=== PATIENT | female | born 1945 | race Caucasian/White ===

== ENCOUNTER → 2020-10-05 14:40 | Outpatient (CLI) | payer MEDICARE, SELFPAY ==
[2020-10-05 14:17] VITALS: BMI 52.7
[2020-10-05 15:44] LABS: ALB/GLOB Ratio 1.2 RATIO (0.9-2.4); AST(SGOT) 14 U/L (15-37); Alanine Aminotransfer ALT/SGPT 26 U/L (13-56); Albumin, Serum 4.1 g/dL (3.2-5.0); Alkaline Phosphatase 101 U/L (45-117); Anion Gap 8 (5-15); BUN 17 mg/dL (7-18); BUN/Creat Ratio 24.7 RATIO (10-20); Calcium,Total 9.5 mg/dL (8.5-10.1); Chloride 103 mmol/L (98-107); Cholesterol 192 mg/dL (200); Creatinine, Serum 0.69 mg/dL (0.55-1.02); EST Glomerular Filtration Rate 89 mL/min (>60); Est Glom Filt Rate - Afr Amer 107 mL/min (>60); Globulin 3.4 g/dL (2.2-4.2); Glucose 103 mg/dL (74-106); High Density Lipoprotein 71 mg/dL; Potassium 4.9 mmol/L (3.5-5.1); Protein, Total 7.5 g/dL (6.4-8.2); Sodium Level 140 mmol/L (136-145); Triglycerides 171 mg/dL; Very Low Density Lipoprotein 34 mg/dL (5-40)
== END ==
PROVIDERS: PCP Family Medicine; Referring Provider Family Medicine; Visit Provider Family Medicine
DX: I10 Essential (primary) hypertension (principal); E78.5 Hyperlipidemia, unspecified
CPT/HCPCS: 36415; 80053; 80061

== ENCOUNTER 2021-09-14 15:58 | Outpatient (CLI) | payer MEDICARE, SELFPAY ==
[2021-09-14 16:49] LABS: AST(SGOT) 16 U/L (15-37); Alanine Aminotransfer ALT/SGPT 28 U/L (13-56); Albumin, Serum 3.9 g/dL (3.2-5.0); Alkaline Phosphatase 95 U/L (45-117); Anion Gap 5 (5-15); BUN 10 mg/dL (7-18); BUN/Creat Ratio 13.9 RATIO (10-20); Calcium,Total 9.2 mg/dL (8.5-10.1); Chloride 103 mmol/L (98-107); Cholesterol 176 mg/dL (200); Creatinine, Serum 0.72 mg/dL (0.55-1.02); EST Glomerular Filtration Rate 84 mL/min (>60); Est Glom Filt Rate - Afr Amer 102 mL/min (>60); Globulin 3.9 g/dL (2.2-4.2); Glucose 101 mg/dL (74-106); High Density Lipoprotein 67 mg/dL; Potassium 4.9 mmol/L (3.5-5.1); Protein, Total 7.8 g/dL (6.4-8.2); Sodium Level 138 mmol/L (136-145); Triglycerides 143 mg/dL; Very Low Density Lipoprotein 29 mg/dL (5-40)
== END 2021-09-14 23:59 | disposition home or self-care (01) ==
LOC: BIMLAB 15:59
PROVIDERS: PCP Family Medicine; Referring Provider Family Medicine; Visit Provider Family Medicine
DX: E78.5 Hyperlipidemia, unspecified (principal); I51.9 Heart disease, unspecified
CPT/HCPCS: 36415; 80053; 80061

== ENCOUNTER → 2022-06-05 | Outpatient (CLI) | payer MEDICARE, SELFPAY ==
[2022-06-05 17:53] LABS: Anion Gap 4 (5-15); BUN 17 mg/dL (7-18); BUN/Creat Ratio 20.6 RATIO (10-20); Calcium,Total 9.3 mg/dL (8.5-10.1); Chloride 108 mmol/L (98-107); Creatinine, Serum 0.83 mg/dL (0.55-1.02); EST Glomerular Filtration Rate 71 mL/min (>60); Est Glom Filt Rate - Afr Amer 86 mL/min (>60); Glucose 138 mg/dL (74-106); Potassium 4.2 mmol/L (3.5-5.1); Sodium Level 141 mmol/L (136-145)
== END | disposition home or self-care (01) ==
PROVIDERS: PCP Family Medicine; Referring Provider Urology; Visit Provider Urology
DX: N39.44 Nocturnal enuresis (principal)
CPT/HCPCS: 36415; 80048

== ENCOUNTER → 2022-07-18 | Outpatient (CLI) | payer MEDICARE, SELFPAY ==
[2022-07-18 18:22] LABS: Anion Gap 4 (5-15); BUN 15 mg/dL (7-18); BUN/Creat Ratio 23.4 RATIO (10-20); Calcium,Total 8.9 mg/dL (8.5-10.1); Chloride 109 mmol/L (98-107); Creatinine, Serum 0.64 mg/dL (0.55-1.02); EST Glomerular Filtration Rate 96 mL/min (>60); Est Glom Filt Rate - Afr Amer 116 mL/min (>60); Glucose 122 mg/dL (74-106); Potassium 4.1 mmol/L (3.5-5.1); Sodium Level 142 mmol/L (136-145)
== END | disposition home or self-care (01) ==
LOC: MTLAB 14:56
PROVIDERS: PCP Family Medicine; Referring Provider Urology; Visit Provider Urology
DX: N39.44 Nocturnal enuresis (principal)
CPT/HCPCS: 36415; 80048

== ENCOUNTER → 2022-12-06 | Outpatient (CLI) | payer OTHER, SELFPAY ==
[2022-12-06 17:17] LABS: Cholesterol 132 mg/dL (200); High Density Lipoprotein 64 mg/dL; Triglycerides 76 mg/dL; Very Low Density Lipoprotein 15 mg/dL (5-40)
== END | disposition home or self-care (01) ==
LOC: BIMLAB 15:36
PROVIDERS: PCP Family Medicine; Visit Provider Family Medicine
DX: G45.9 Transient cerebral ischemic attack, unspecified (principal)
CPT/HCPCS: 36415; 80061

== ENCOUNTER → 2022-12-19 | Outpatient (CLI) | payer OTHER, SELFPAY ==
[2022-12-19 15:35] LABS: Anion Gap 5 (5-15); BUN 13 mg/dL (7-18); BUN/Creat Ratio 19.7 RATIO (10-20); Calcium,Total 8.8 mg/dL (8.5-10.1); Chloride 104 mmol/L (98-107); Creatinine, Serum 0.66 mg/dL (0.55-1.02); EST Glomerular Filtration Rate 93 mL/min (>60); Est Glom Filt Rate - Afr Amer 112 mL/min (>60); Glucose 159 mg/dL (74-106); Potassium 4.3 mmol/L (3.5-5.1); Sodium Level 136 mmol/L (136-145)
== END | disposition home or self-care (01) ==
LOC: MTLAB 13:41
PROVIDERS: PCP Family Medicine; Referring Provider Urology; Visit Provider Urology
DX: N39.44 Nocturnal enuresis (principal)
CPT/HCPCS: 36415; 80048

== ENCOUNTER → 2023-08-21 | Outpatient (CLI) | payer OTHER, SELFPAY ==
--- OUTSIDE RECORDS SUMMARY | 2023-08-21 14:43 | XMS RPT_ITS | CCD ---
Author Name Unknown Address [address] [place] [address] Organization [facility] Care Team Providers Care Income Tax Manager Name Role Phone Lashell Neville Unavailable Unavailable Unavailable Primary Care Provider DARRION Diaz DO Primary Care Unavailable DARRION [place] DO Attending Unavailable BRITTANY WASHINGTON MD Attending Unavailable DARRION [place] DO Primary Care Unavailable DARRION [place] DO Attending Unavailable DARRION [place] DO Primary Care Unavailable Allergies Allergy Classification Reported Allergen(s) Allergy Type Date of Onset Reaction(s) Facility (2 sources) Indomethacin; Translations: [INDOMETHACIN] Drug Allergy 2020 Other: See Comments [facility] (2 sources) Morphine; Translations: [MORPHINE] Drug Allergy 2020 Itching [facility] Medications Current Medications Medication Drug Class(es) Dates Sig (Normalized) Sig (Original) benzonatate 100 mg oral capsule (1 source) Non-narcotic Antitussive Start: 07-07-2022 End: 07-14-2022 take 2 capsules by mouth three times daily as needed benzonatate (TESSALON PERLES) 100 mg capsule Indications: Respiratory illness Take 2 capsules by mouth three times daily as needed for up to 7 days. 42 capsule 0 07/07/2022 07/14/2022 Active Completed/Discontinued Medications Medication Drug Class(es) Dates Sig (Normalized) Sig (Original) amLODIPine 5 mg oral tablet (1 source) Dihydropyridine Calcium Channel Bianka Start: 06-27-2022 amLODIPine (NORVASC) 5 mg tablet aspirin 81 mg delayed release oral tablet (1 source) Platelet Aggregation Inhibitor, Nonsteroidal Anti-inflammatory Drug Start: 2020 aspirin, enteric coated (ASPIRIN, ENTERIC COATED) 81 mg EC tablet Take by mouth. 0 2020 Active Problems Active Problems Problem Classification Problem Date Documented Da te Episodic/Chronic Genitourinary symptoms and ill-defined conditions (4 sources) Nocturnal enuresis; Translations: [Nocturnal enuresis] Onset: 06-13-2022 Chronic Other lower respiratory disease (1 source) Disorder of respiratory system; Translations: [Respiratory disorder, unspecified] Episodic Other lower respiratory disease (1 source) Respiratory disorder, unspecified; Translations: [Respiratory illness] Onset: 07-07-2022 Episodic Unclassified (1 source) Unknown / UNK(Unknown) Onset: 12-10-2017 Past or Other Problems Problem Classification Problem Date Documented Da te Episodic/Chronic Unclassified (1 source) LEFT HAND LACERATION Onset: 12-10-2017 Results Test Name Value Interpretation Reference Range Facil ity Vital Signs Date Time Vital Sign Value Performing Clinician Sarah carter 07-07-2022 15:37-0500 Body temperature 97.5 [degF] [place] [place] Work Phone: [facility] 07-07-2022 15:37-0500 Body weight 115.67 kg [facility] [place] Work Phone: [facility] 07-07-2022 15:37-0500 Diastolic blood pressure 73 mm[Hg] [facility] [place] Work Phone: [facility] 07-07-2022 15:37-0500 Heart rate 62 /min [facility] [place] Work Phone: [facility] 07-07-2022 15:37-0500 Respiratory rate 18 /min [facility] [place] Work Phone: [facility] 07-07-2022 15:37-0500 SaO2% (BldA) [Mass fraction] 97 % [facility] [place] Work Phone: [facility] 07-07-2022 15:37-0500 Systolic blood pressure 141 mm[Hg] [facility] [place] Work Phone: [facility] Encounters Encounter Date Encounter Type Care Provider Facility Start: 03-21-2023 End: 03-22-2023 ambulatory DARRION [place] DO Facility:A Start: 03-12-2023 End: 05-17-2023 ambulatory DARRION [place] DO Facility:A Start: 11-28-2022 End: 12-03-2022 ambulatory BRITTANY WASHINGTON MD Facility:A Start: 07-07-2022 End: 07-07-2022 ambulatory Facility:[id number] Start: 07-07-2022 End: 07-07-2022 Patient encounter procedure [facility] Work Phone: [facility] Plan of Treatment Date Care Activity Detail Author Start: 07-30-2021 ADVANCE DIRECTIVE DISCUSSION ADVANCE DIRECTIVE DISCUSSION [facility] Start: 07-30-2021 DEPRESSION ASSESSMENT DEPRESSION ASS ESSMENT [facility] Start: 2011 BONE DENSITY BONE DENSITY [facility] Start: 2011 PNEUMOCOCCAL: 65+ (1 - PCV) PNEUMOCOCCAL: 65+ (1 - PCV) [facility] Start: 1996 SHINGRIX VACCINE (1 of 2) PAUL GRIX VACCINE (1 of 2) [facility] Start: 1991 DIABETES SCREEN DIABETES SCREEN [facility] Start: 1965 Urine microalbumin profile DTAP,TDAP ,TD (1 - Tdap) [facility] Start: 1964 HEPATITIS C SCREENING HEPATITIS C PR RUDY [facility] Payers Date Payer Category Payer Medicaid [id number] 2021 Medicare UHC AARP MEDICAR E [facility] AARP MEDICARE HMO [id number] 2021-Present [phone] [address] [address] [place] [address] HMO [id number] 2012 Medicare [id number] 1945 Unknown [id number] 1945 Unknown [id number] 1945 Unknown [id number] Social History Date Type Detail Facility [facility]: [facility] Start: 07-07-2022 Tobacco use and exposure Smoke less tobacco non-user [facility] Start: 07-07-2022 Alcohol intake Ex-drinker (finding) [facility] Start: 1945 Sex Assigned At Not on file [facility] Progress note 07-07-2022 Note Date & Type Note Facility 07-07-2022 Note HNO ID: [id number] Author: Zoie Amezquita, DO Service: ? Author Type: Physician Type: Progress Notes Filed: 07/07/2022 3:57 PM Note Text: Nora Burnette is a 77 year old FEMALE who presents with Cough (Congestion x 8 days) HPI History reviewed. No pertinent past medical history. There is no problem list on file for this patient. Current Outpatient Medications Medication Sig Dispense Refill aspirin, enteric coated (ASPIRIN, ENTERIC COATED) 81 mg EC tablet Take by mouth. calcium carbonate 600 mg-cholecalciferol 400 units 600 mg-10 mcg (400 unit) tab Take by mouth. amLODIPine (NORVASC) 5 mg tablet atorvastatin (LIPITOR) 40 mg tablet bisoprolol (ZEBETA) [address] (PROTONIX) 20 mg tablet PARoxetine (PAXIL) 10 mg tablet guaiFENesin (MUCINEX) 600 mg 12 hr tablet Take 1,200 mg by mouth twice daily. levoFLOXacin (LEVAQUIN) 500 mg tablet Take 1 tablet by mouth once daily for 10 days. 10 tablet 0 benzonatate (TESSALON PERLES) 100 mg capsule Take 2 capsules by mouth three times daily as needed for up to 7 days. 42 capsule 0 dexAMETHasone (DECADRON) 4 mg tablet Take 1 tablet by mouth once daily for 4 days. 4 tablet 0 No current facility-administered medications for this visit. Social History Tobacco Use Smoking status: Never Smokeless tobacco: Never Vaping Use Vaping Use: Never used Substance Use Topics Alcohol use: Not Currently Drug use: Never Alcohol Use: Not Currently Tobacco Use: Never History reviewed. No pertinent family history. Review of Systems Constitutional: Positive for fever and malaise/fatigue. HENT: Positive for congestion, sinus pain and sore throat. Respiratory: Positive for cough, sputum production, shortness of breath and wheezing. Musculoskeletal: Positive for myalgias. BP 141/73 Pulse 62 Temp 97.5 Resp 18 Wt 255 lb (115.7kg) SpO2 97% Physical Exam Vitals and nursing note reviewed. Constitutional: Appearance: Normal appearance. HENT: Head: Normocephalic and atraumatic. Nose: Congestion and rhinorrhea present. Mouth/Throat: Pharynx: Posterior oropharyngeal erythema present. Cardiovascular: Rate and Rhythm: Normal rate and regular rhythm. Pulses: Normal pulses. Heart sounds: Normal heart sounds. Pulmonary: Breath sounds: Wheezing and rhonchi present. Abdominal: General: Bowel sounds are normal. Musculoskeletal: General: Normal range of motion. Lymphadenopathy: Cervical: Cervical adenopathy present. Skin: General: Skin is warm. Capillary Refill: Capillary refill takes less than 2 seconds. Neurological: General: No focal deficit present. Mental Status: She is alert. Psychiatric: Mood and Affect: Mood normal. ASSESSMENT/PLAN: 1. Respiratory illness - ICD9: 519.9, ICD10: J98.9 - LEVOFLOXACIN 500 MG TABLET - BENZONATATE 100 MG CAPSULE - DEXAMETHASONE 4 MG TABLET Zoie Amezquita [facility] History of Present illness Narrative 07-07-2022 Zoie Amezquita DO - 07/07/2022 3:56 PM EST Note Date & Type Note Facility 07-07-2022 History of Presen t illness Narrative Nora Burnette is a 77 year old FEMALE who presents with Cough (Congestion x 8 days) HPI History reviewed. No pertinent past medical history. There is no problem list on file for this patient. Current Outpatient Medications Medication Sig Dispense Refill aspirin, enteric coated (ASPIRIN, ENTERIC COATED) 81 mg EC tablet Take by mouth. calcium carbonate 600 mg-cholecalciferol 400 units 600 mg-10 mcg (400 unit) tab Take by mouth. amLODIPine (NORVASC) 5 mg tablet atorvastatin (LIPITOR) 40 mg tablet bisoprolol (ZEBETA) [address] (PROTONIX) 20 mg tablet PARoxetine (PAXIL) 10 mg tablet guaiFENesin (MUCINEX) 600 mg 12 hr tablet Take 1,200 mg by mouth twice daily. levoFLOXacin (LEVAQUIN) 500 mg tablet Take 1 tablet by mouth once daily for 10 days. 10 tablet 0 benzonatate (TESSALON PERLES) 100 mg capsule Take 2 capsules by mouth three times daily as needed for up to 7 days. 42 capsule 0 dexAMETHasone (DECADRON) 4 mg tablet Take 1 tablet by mouth once daily for 4 days. 4 tablet 0 No current facility-administered medications for this visit. Social History Tobacco Use Smoking status: Never Smokeless tobacco: Never Vaping Use Vaping Use: Never used Substance Use Topics Alcohol use: Not Currently Drug use: Never Alcohol Use: Not Currently Tobacco Use: Never History reviewed. No pertinent family history. Review of Systems Constitutional: Positive for fever and malaise/fatigue. HENT: Positive for congestion, sinus pain and sore throat. Respiratory: Positive for cough, sputum production, shortness of breath and wheezing. Musculoskeletal: Positive for myalgias. BP 141/73 Pulse 62 Temp 97.5 Resp 18 Wt 255 lb (115.7kg) SpO2 97% Physical Exam Vitals and nursing note reviewed. Constitutional: Appearance: Normal appearance. HENT: Head: Normocephalic and atraumatic. Nose: Congestion and rhinorrhea present. Mouth/Throat: Pharynx: Posterior oropharyngeal erythema present. Cardiovascular: Rate and Rhythm: Normal rate and regular rhythm. Pulses: Normal pulses. Heart sounds: Normal heart sounds. Pulmonary: Breath sounds: Wheezing and rhonchi present. Abdominal: General: Bowel sounds are normal. Musculoskeletal: General: Normal range of motion. Lymphadenopathy: Cervical: Cervical adenopathy present. Skin: General: Skin is warm. Capillary Refill: Capillary refill takes less than 2 seconds. Neurological: General: No focal deficit present. Mental Status: She is alert. Psychiatric: Mood and Affect: Mood normal. ASSESSMENT/PLAN: 1. Respiratory illness - ICD9: 519.9, ICD10: J98.9 - LEVOFLOXACIN 500 MG TABLET - BENZONATATE 100 MG CAPSULE - DEXAMETHASONE 4 MG TABLET Zoie Amezquita documented in this encounter [facility] Evaluation note Note Date & Type Note Facility documented in this encounter [facility] Summary Purpose Family History No Family History Records FoundNo Family History Records FoundNo Family History Records FoundNo Family History Records Found Advance Directives No Advanced Directives Records FoundNo Advanced Directives Records FoundNo Advanced Directives Records FoundNo Advanced Directives Records Found Additional Source Comments INFORMATION SOURCE (unrecogn ized section and content) DATE CREATED AUTHOR AUTHOR'S ORGANIZ ATION 06/14/2022 [facility] DATE CREATED AUTHOR AUTHOR'S ORGANIZ ATION 07/08/2022 [facility] DATE CREATED AUTHOR AUTHOR'S ORGANIZ ATION 07/18/2023 [facility] ([place]) Source Comments (unrecognize d section and content) In the event this informatio n is protected by the Federal Confidentiality of Alcohol and Drug Abuse Patient Records regulations: The Federal rules restrict any use of the information to criminally investigate or prosecute any alcohol or drug abuse patient.[facility] Reason for Visit (unrecogniz ed section and content) FOR RECORDS PERTAINING TO PATIENTS WHO ARE OR HAVE BEEN ENROLLED IN A CHEMICAL DEPENDENCY/SUBSTANCEABUSE PROGRAM, SOME INFORMATION MAY BE OMITTED. This clinical summary was aggregated from multiple sources. Caution should be exercised in using it in the provision of clinical care. This summary normalizes information from multiple sources, and as a consequence, information in this document may materially change the coding, format and clinical context of patient data. In addition, data may be omitted in some cases. CLINICAL DECISIONS SHOULD BE BASED ON THE PRIMARY CLINICAL RECORDS. [facility] [employer] [facility]. provides no warranty or guarantee of the accuracy or completeness of information in this document.
[2023-08-21 15:52] LABS: Absolute Lymphocyte Count 2.79 X10^3/uL (0.83-4.51); Absolute Neutrophil Count 6.3 X10^3/uL (2.0-7.7); Basophil# 0.04 X10^3/uL; Basophil% 0.4 % (0-1); Eosinophil# 0.12 X10^3/uL; Eosinophils% 1.2 % (0-5); Hematocrit 41.9 % (37-47); Hemoglobin 13.3 g/dL (12.0-15.0); Lymphocyte # 2.79 X10^3/ul (0.83-4.51); Lymphocyte % 28.5 % (19-41); Mean Corp Hgb Conc 31.7 g/dL (32-36); Mean Corpuscular Hgb 27.7 pg (27.0-32.0); Mean Corpuscular Volume 87.1 fL (81-99); Mean Platelet Vol. 9.6 fl (6.2-12.0); Monocyte# 0.55 X10^3/uL; Monocyte% 5.6 % (0-10); NRBC Flagged by Analyzer 0 % (0-5); Neutrophil # 6.26 X10^3/uL (2.7-7.7); Platelet Count 284 K/mm3 (150-450); RBC Distribution Width CV 13.6 % (11.6-14.6); RBC Distribution Width SD 43.3 fl (35.1-43.9); Red Blood Count 4.81 M/mm3 (4.2-5.4); White Blood Count 9.8 K/mm3 (4.4-11.0)
[2023-08-21 16:23] LABS: Hemoglobin A1c 6.6 % (3.8-5.6)
[2023-08-21 16:33] LABS: AST(SGOT) 17 U/L (15-37); Alanine Aminotransfer ALT/SGPT 27 U/L (13-56); Albumin, Serum 3.8 g/dL (3.2-5.0); Alkaline Phosphatase 97 U/L (45-117); Anion Gap 5 (5-15); BUN 8 mg/dL (7-18); BUN/Creat Ratio 14.6 RATIO (10-20); Calcium,Total 9.6 mg/dL (8.5-10.1); Chloride 101 mmol/L (98-107); Creatinine, Serum 0.55 mg/dL (0.55-1.02); EST Glomerular Filtration Rate 114 mL/min (>60); Est Glom Filt Rate - Afr Amer 138 mL/min (>60); Globulin 3.7 g/dL (2.2-4.2); Glucose 100 mg/dL (74-106); Potassium 3.9 mmol/L (3.5-5.1); Protein, Total 7.5 g/dL (6.4-8.2); Sodium Level 134 mmol/L (136-145)
[2023-08-23 12:43] LABS: Cholesterol 149 mg/dL (200); High Density Lipoprotein 60 mg/dL; Triglycerides 115 mg/dL; Very Low Density Lipoprotein 23 mg/dL (5-40)
== END | disposition home or self-care (01) ==
LOC: BIMLAB 14:18
PROVIDERS: PCP Family Medicine; Visit Provider Family Medicine
DX: E78.5 Hyperlipidemia, unspecified (principal); R73.01 Impaired fasting glucose; I51.9 Heart disease, unspecified
CPT/HCPCS: 36415; 80053; 80061; 83036; 85025

== ENCOUNTER → 2024-03-12 | Outpatient (CLI) | payer MEDICARE, MEDICAID, SELFPAY ==
[2024-03-12 15:18] LABS: Anion Gap 2 (5-15); BUN 10 mg/dL (7-18); BUN/Creat Ratio 16.2 RATIO (10-20); Calcium,Total 9.3 mg/dL (8.5-10.1); Chloride 106 mmol/L (98-107); Creatinine, Serum 0.62 mg/dL (0.55-1.02); EST Glomerular Filtration Rate 99 mL/min (>60); Est Glom Filt Rate - Afr Amer 120 mL/min (>60); Glucose 102 mg/dL (74-106); Potassium 4.2 mmol/L (3.5-5.1); Sodium Level 138 mmol/L (136-145)
== END | disposition home or self-care (01) ==
PROVIDERS: PCP Family Medicine; Referring Provider Urology; Visit Provider Urology
DX: N39.44 Nocturnal enuresis (principal)
CPT/HCPCS: 36415; 80048

== ENCOUNTER → 2025-03-16 | Outpatient (CLI) | payer MEDICARE, MEDICAID, SELFPAY ==
[2025-03-16 18:20] LABS: Anion Gap 11 (5-15); BUN 13 mg/dL (4-19); BUN/Creat Ratio 23.2 RATIO (10-20); Calcium,Total 9.8 mg/dL (7.6-11.0); Carbon Dioxide 26.4 mmol/L (21.0-32.0); Chloride 102 mmol/L (98-108); Glucose 108 mg/dL (70-99); Potassium 4.4 mmol/L (3.3-5.1)
== END | disposition home or self-care (01) ==
LOC: MTLAB 14:32
PROVIDERS: PCP Family Medicine; Referring Provider Urology; Visit Provider Urology
DX: R35.1 Nocturia (principal)
CPT/HCPCS: 36415; 80048